=== PATIENT | male | born 1995 | race Caucasian/White ===

== ENCOUNTER 2020-10-31 17:53 | Emergency (ER) | payer OTHER, SELFPAY ==
--- NOTE | ~2020-10-31 | XR_ITS ---
EXAMINATION: XR tibia fibula RT 2V EXAM DATE: 10/31/2020 18:41 INDICATION: Trauma today while water tubing/pain medial, proximal tibia/fibula. TECHNIQUE: Right tibia/fibula frontal and lateral projections obtained and reviewed. There is no priyanka or study for comparison. FINDINGS: Right tibial and fibular shafts unremarkable. There are no acute fractures or dislocations identified. There is no subcutaneous gas. The soft tissue is unremarkable. There are no radiopaq ue foreign bodies. IMPRESSION: No acute osseous findings. Reviewed, dictated and finalized at location G. IMPRESSION: No acute osseous findings.
[2020-10-31 18:07] VITALS: BP 124/82; PULSE 100; RESP 18; TEMP 37.1; O2SAT 98
--- NOTE | 2020-10-31 18:26 | ED.GENADULT ---
HPI - General Adult General Chief complaint: Extremity Injury, Lower Stated complaint: right koehler injury Source: patient and family (Spouse) Mode of arrival: ambulatory Limitations: no limitations History of Present Illness HPI narrative: Patient is a 24-year-old male who presents to [facility] via POV for evaluation of a right lower leg injury that occurred approximately 2 hours prior to arrival. Patient reports he was tubing when his accidentally kicked him in the right lower leg prompting today's visit. Additionally, he reports pain and bruising. Pain is 7-8/10 and is constant and achy in nature. He does report pain shoots down right lower leg. Denies taking OTC meds for symptoms. Nothing improves symptoms. Related Data Home Medications Medication Instructions Recorded Confirmed No Home Medications 10/31/20 10/31/20 Allergies Allergy/AdvReac Type Severity Reaction Status Date / Time No Known Allergies Allergy Verified 10/31/20 18:17 Review of Systems Review of Systems: Narrative: Denies chills, headache, dizziness, swollen/painful LNs, decreased ROM, difficulty with coordination/gait, loss of sensation, deformity, stiffness, arthralgia, arthritis, myalgia, cp, palpitations, and shortness of breath. Denies hx of gout PMFSH Comments I have reviewed and agree with the patient's past medical, surgical, social, and family hx as documented by the RN. There is no relevant family history pertinent to the presenting complaint. Exam Narrative: Exam Narrative: GENERAL: Well-appearing, well-nourished, and in no acute distress. HEAD: Normocephalic, atraumatic. NECK: Supple. No Lymphadenopathy or nuchal rigidity appreciated. CHEST: Bilateral lung rice are clear to auscultation. No respiratory distress. No evidence of cough or pleuritic cp upon examination. HEART: Regular rate and rhythm. No murmur, gallop, or rub heard. EXTREMITIES: 4 x 4 centimeter contusion noted to medial aspect of right lower leg. Moderate pain elicited with palpation. Patient ambulates with a right-sided limp and slow gait. No evidence of decreased ROM, swelling, cyanosis, laceration, abrasion, deformity, rash, or puncture. No evidence of pain with active/passive ROM. No evidence of dislocation, ligament laxity, effusion, or pain at rest. Pulses palpable at 2+, strength 5/5, and cap refill < 3 seconds in affected extremity. DTRs normal. SKIN: Warm, dry, no rash. NEURO: No focal deficits. Alert and oriented x3. SPECIAL OBSERVATIONS: Smiling. Laughing. No evidence of discomfort. C/O of of proportion to exam. Course Vital Signs Vital signs: Vital Signs Temperature 98.8 F 10/31/20 18:07 Pulse Rate 100 10/31/20 18:07 Respiratory Rate 18 10/31/20 18:07 Blood Pressure 124/82 10/31/20 18:07 Pulse Oximetry 98 10/31/20 18:07 Temperature 98.8 F 10/31/20 18:07 Pulse Rate 100 10/31/20 18:07 Respiratory Rate 18 10/31/20 18:07 Blood Pressure 124/82 10/31/20 18:07 Pulse Oximetry 98 10/31/20 18:07 Reviewed. Medical Decision Making Differential Diagnosis Differential Diagnosis: Sprain, strain, contusion, spasm Medical Records Medical records reviewed: Yes I reviewed the external patient's medical records. Vital Signs Vital Signs: Vital Signs Temperature 98.8 F 10/31/20 18:07 Pulse Rate 100 10/31/20 18:07 Respiratory Rate 18 10/31/20 18:07 Blood Pressure 124/82 10/31/20 18:07 Pulse Oximetry 98 10/31/20 18:07 Temperature 98.8 F 10/31/20 18:07 Pulse Rate 100 10/31/20 18:07 Respiratory Rate 18 10/31/20 18:07 Blood Pressure 124/82 10/31/20 18:07 Pulse Oximetry 98 10/31/20 18:07 Reviewed. Imaging Data Attestation: I personally reviewed and interpreted this imaging study as follows: My impression: Negative for fracture Radiologist's impression: IMPRESSION: No acute osseous findings. Reviewed, dictated and fi
== END 2020-10-31 19:04 | disposition home or self-care (01) ==
PROVIDERS: Emergency Provider Nurse Practitioner Family
DX: S70.11XA Contusion of right thigh, initial encounter (principal); W51.XXXA Accidental striking against or bumped into by another person, initial encounter; Y93.16 Activity, rowing, canoeing, kayaking, rafting and tubing
CPT/HCPCS: 73590; 99203; G0463